=== PATIENT | male | born 1990 | race Caucasian/White ===

== ENCOUNTER 2018-01-18 20:59 | Emergency (ER) | payer OTHER ==
--- NOTE | 2018-01-18 21:34 | PDOC ---
Rapid Medical Evaluation Time Seen by Provider: 01/18/18 21:33 Medical Evaluation: Allergies Allergy/AdvReac Type Severity Reaction Status Date / Time No Known Allergies Allergy Verified 07/01/15 21:25 01/18/18 21:33 I have performed a brief in-person evaluation of this patient. The patient presents with a chief complaint of: work injury yesterday, oil tank bent L thumb back Pertinent physical exam findings: swelling to L thumb I have ordered the following: xray The patient will proceed to the ED for further evaluation. Discharge Disposition - Diagnosis Thumb injury - Referrals - Patient Instructions - Post Discharge Activity
[2018-01-18 21:40] VITALS: BP 120/41; PULSE 60; TEMP 98.1; BMI 27.4
--- NOTE | 2018-01-18 22:08 | PDOC ---
History of Present Illness - General Stated Complaint: INJURY Time Seen by Provider: 01/18/18 21:33 History Source: Patient Exam Limitations: No Limitations - History of Present Illness Initial Comments: 01/18/18 22:31 27-year-old male without significant past medical history presents emergency Department with left thumb pain status post hyperextension injury on 01/17. Patient states he was moving an oil tank when it slipped catching his thumb and extending his thumb backwards touching his wrist. Then immediately went back into place and was able to move his thumb. Has increased pain at the base of the thumb status post the injury. Past History - Past Medical History Allergies/Adverse Reactions: Allergies Allergy/AdvReac Type Severity Reaction Status Date / Time No Known Allergies Allergy Verified 01/18/18 21:36 Home Medications: Ambulatory Orders NK [No Known Home Medication] 07/01/15 COPD: No Other medical history: Pt denies - Suicide/Smoking/Psychosocial Hx Smoking History: Current some day smoker Have you smoked in the past 12 months: Yes Number of Cigarettes Smoked Daily: 10 Information on smoking cessation initiated: No Hx Alcohol Use: No Drug/Substance Use Hx: No Substance Use Type: None Review of Systems - Review of Systems Able to Perform ROS?: Yes Is the patient limited Pakistani proficient: No Constitutional: No: Symptoms Reported HEENTM: No: Symptoms Reported Respiratory: No: Symptoms reported Cardiac (ROS): No: Symptoms Reported ABD/GI: No: Symptoms Reported : No: Symptoms Reported Musculoskeletal: Yes: See HPI Integumentary: No: Symptoms Reported *Physical Exam - Vital Signs Last Vital Signs Temp Pulse Resp BP Pulse Ox 98.1 F 60 18 120/41 98 01/18/18 21:37 01/18/18 21:37 01/18/18 21:37 01/18/18 21:37 01/18/18 21:37 - Physical Exam General Appearance: Yes: Appropriately Dressed. No: Apparent Distress Musculoskeletal: positive: Normal Inspection Extremity: positive: Normal Capillary Refill, Normal Range of Motion, Tender, Other (Swelling noted to the base of the left thumb. Patient able to flex and extend against resistance.). negative: Normal Inspection Integumentary: positive: Normal Color, Dry, Warm Neurologic: positive: Alert, Normal Response Medical Decision Making - Medical Decision Making 01/18/18 22:34 A/P: 27-year-old male without significant past medical history left thumb pain for one day status post hyperextension Swelling noted to the dorsum and palmar's aspects at the base of the left thumb. Patient able to flex and extend thumb against resistance No bony tenderness to palpation Capillary refill less than 2 seconds Full sensation noted distal to injury X-rays as read by me: No fractures or dislocations present. Motrin 800 mg orally now Discharge home *DC/Admit/Observation/Transfer Diagnosis at time of Disposition: Thumb injury Qualifiers: Encounter type: initial encounter Laterality: left Qualified Code(s): S69.92XA - Unspecified injury of left wrist, hand and finger(s), initial encounter - Discharge Dispostion Disposition: HOME Condition at time of disposition: Stable Admit: No - Referrals Referrals: Job Best MD [Staff Physician] - - Patient Instructions Additional Instructions: Take Tylenol or Motrin as needed for pain. Follow manufacturers instructions for appropriate dosage. Apply ice for 20 minutes and removed for at least 20 minutes before reapplying the ice. You've been given the number for an orthopedist. If symptoms do not resolve within the next 7 days call the orthopedist for further evaluation. Return to emergency department for any other concerns. Thank you very much for choosing us to provide your emergent healthcare needs. - Post Discharge Activity
[2018-01-18] MEDS ORDERED: IBUPROFEN 400 MG TABLET (FP) PO ONE ×2 (22:31→22:32)
== END 2018-01-18 22:39 | disposition home or self-care (01) ==
LOC: JERFT 20:59
DX: S69.82XA Other specified injuries of left wrist, hand and finger(s), initial encounter (principal); X50.1XXA Overexertion from prolonged static or awkward postures, initial encounter; Y93.89 Activity, other specified; Y92.69 Other specified industrial and construction area as the place of occurrence of the external cause; Y99.0 Civilian activity done for income or pay; F17.210 Nicotine dependence, cigarettes, uncomplicated
CPT/HCPCS: 73140-TC-LT-FY; 99281-25